=== PATIENT | male | born 1970 | race Caucasian/White ===

== ENCOUNTER 2021-05-29 20:41 | Emergency (ER) | payer OTHER ==
--- NOTE | 2021-05-29 21:21 | EDM.PDOC ---
ED HPI GENERAL MEDICAL PROBLEM - General Chief Complaint: Neck Problem Stated Complaint: NECK PAIN Time Seen by Provider: 05/29/21 21:06 - History of Present Illness INITIAL COMMENTS - FREE TEXT/NARRATIVE: History of present illness: [] Heavy equipment fell on his head 2 days ago which was an axial load. He did not have an LOC or fall. He has severe neck pain and cannot turn his neck to the left mouth. He has severe headache as well. No nausea and vomiting. No distal neurologic problems. He does think sometimes the pain takes the wind out of him. Review of systems: As per history of present illness and below otherwise all systems reviewed and negative. Past medical history: As per history of present illness and as reviewed below otherwise noncontributory. Surgical history: As per history of present illness and as reviewed below otherwise noncontributory. Social history: No reported history of drug or alcohol abuse. Family history: As per history of present illness and as reviewed below otherwise non contributory. Physical exam: Constitutional - well developed, well-nourished and in no acute distress HEENT -tender posterior C-spine mostly in the muscles especially on the right side. No step-off or deformity. Normocephalic, no evidence of trauma - external nose and mouth normal - no mass in neck and no JVD - mucosae moist EYES - full EOM, PERRL, no icterus - no evidence of inflammation, injection, or drainage Respiratory - no respiratory distress, equal bilateral expansion, lungs clear to auscultation and no abnormal lung sounds Cardiovascular - Regular Rhythm with S1 and S2 appreciated and no murmur, gallop or rub. GI - abdomen soft without distension or organomegaly - normal bowel sounds - no guard or rebound Musculoskeletal no gross deformity of long bones or joints - no tenderness, swelling or edema Neurologic -my customary brief neurologic exam is normal-alert and oriented times four - CN II-XII grossly intact - motor sensory and coordination symmetrically normal Psychiatric - appropriate mood and affect with normal thought content Hematologic - No petechiae or purpura - mucosa appropriate color and sclera not pale - normal nail bed color and refill Integument - no rash or evidence of trauma - normal turgor Diagnostics: [] Therapeutics: [] Impression: [] Plan: [] Definitive disposition and diagnosis as appropriate pending reevaluation and review of above. Head Pain Score (Numeric/FACES): 10 - Related Data Allergies Allergy/AdvReac Type Severity Reaction Status Date / Time venom-honey bee Allergy Severe Facial Verified 05/29/21 21:09 Swelling Home Meds: Home Meds diazePAM [Valium] 5 mg PO TID PRN #15 tab 05/29/21 [Rx] predniSONE [Prednisone] 60 mg PO DAILY #21 tablet 05/29/21 [Rx] Past Medical History HEENT History: Reports: None Cardiovascular History: Reports: None Respiratory History: Reports: None Gastrointestinal History: Reports: None Genitourinary History: Reports: None Musculoskeletal History: Reports: None Neurological History: Reports: Concussion Psychiatric History: Reports: None Endocrine/Metabolic History: Reports: None Hematologic History: Reports: None Immunologic History: Reports: None Oncologic (Cancer) History: Reports: None Dermatologic History: Reports: None Social & Family History - Tobacco Use Second Hand Smoke Exposure: No - Caffeine Use Caffeine Use: Reports: None - Recreational Drug Use Recreational Drug Use: No ED ROS GENERAL - Review of Systems Review Of Systems: Comprehensive ROS is negative, except as noted in HPI. ED EXAM, GENERAL - Physical Exam Exam: See Below Free Text/Narrative:: My physical exam is in the HPI Course - Vital Signs Last Recorded V/S: Last Vital Signs Temp 36.9 C 05/29/21 21:03 Pulse 83 05/29/21 22:09 Resp 18 05/29/21 22:09 BP 132/92 H 05/29/21 22:09 Pulse Ox 96 05/29/21 22:09 - Orders/Labs/Meds Orders: Active Orders 24 hr Category Date Time Status C Collar Applied [Spinal Immobilization] [RC] Care 05/29/21 21:20 Active ASDIRECTED Departure - Departure Time of Disposition: 23:21 Disposition: Home, Self-Care 01 Condition: Good Clinical Impression: Contusion of neck, Muscle spasm - Discharge Information Prescriptions: predniSONE [Prednisone] 60 mg PO DAILY #21 tablet diazePAM [Valium] 5 mg PO TID PRN #15 tab PRN Reason: Muscle Spasm - Painful Instructions: Cervical Sprain, [id number], Muscle Cramps and Spasms, [id number] Referrals: PCP,None [Primary Care Provider] - Forms: ED Department Discharge Additional Instructions: Return immediately if he have any loss of sensation or motion in your extremities. [facility] [address] [place] [address] [facility] [address] [place] [id number] The following information is given to patients seen in the emergency department who are being discharged to home. This information is to outline your options for follow-up care. We provide all patients seen in our emergency department with a follow-up referral. The need for follow-up, as well as the timing and circumstances, are variable depending upon the specifics of your emergency department visit. If you don't have a primary care physician on staff, we will provide you with a referral. We always advise you to contact your personal physician following an emergency department visit to inform them of the circumstance of the visit and for follow-up with them and/or the need for any referrals to a consulting specialist. The emergency department will also refer you to a specialist when appropriate. This referral assures that you have the opportunity for follow-up care with a specialist. All of these measure are taken in an effort to provide you with optimal care, which includes your follow-up. Under all circumstances we always encourage you to contact your private physician who remains a resource for coordinating your care. When calling for follow-up care, please make the office aware that this follow-up is from your recent emergency room visit. If for any reason you are refused follow-up, please contact the [facility] Emergency Department at and asked to speak to the emergency department charge nurse. Sepsis Event Note (ED) - Evaluation Sepsis Screening Result: No Definite Risk - Focused Exam Vital Signs: Vital Signs Temp Pulse Resp BP Pulse Ox 05/29/21 22:09 83 18 132/92 H 96 05/29/21 21:03 36.9 C 80 20 136/79 99 - My Orders Last 24 Hours: My Active Orders 05/29/21 21:20 C Collar Applied [Spinal Immobilization] [RC] ASDIRECTED - Assessment/Plan Last 24 Hours: My Active Orders 05/29/21 21:20 C Collar Applied [Spinal Immobilization] [RC] ASDIRECTED
--- NOTE | 2021-05-29 22:56 | CT ---
INDICATION: Severe headache after blunt trauma TECHNIQUE: CT head without contrast. COMPARISON: None. FINDINGS: CSF spaces: Within normal limits for age. Brain parenchyma: The tavera-white differentiation is normal. No sign of mass, hemorrhage, or midline shift. Skull base and calvarium: Mucosal thickening and trace fluid in the sphenoid sinus. The visualized orbits are grossly unremarkable. No skull fractures. IMPRESSION: Unremarkable noncontrast head CT. Please note that all CT scans at this facility use dose modulation, iterative reconstruction, and/or weight-based dosing when appropriate to reduce radiation dose to as low as reasonably achievable. Dictated by Vasile Sullivan MD @ 05/29/2021 10:55:49 PM (Electronically Signed)
--- NOTE | 2021-05-29 23:17 | CT ---
INDICATION: Severe pain after injury TECHNIQUE: CT cervical spine without contrast. COMPARISON: None FINDINGS: Vertebrae: Alignment is normal. There are no fractures or suspicious bony lesions. Discs and facet joints: Facet hypertrophy C2-3 without significant stenosis. Facet hypertrophy C3-4 without significant stenosis. Facet hypertrophy and mild disc space narrowing C4-5 with small anterior osteophytes. No significant stenosis. Posterior osteophytes facet hypertrophy C5-6 causing mild right foraminal stenosis. Posterior osteophyte at C6-7 causing mild left foraminal stenosis. Facet hypertrophy C7-T1 without significant stenosis. Extraspinal findings: Mucosal thickening and fluid within the sphenoid sinus. IMPRESSION: Multilevel degenerative changes cervical spine without evidence of cervical spine fracture. Please note that all CT scans at this facility use dose modulation, iterative reconstruction, and/or weight-based dosing when appropriate to reduce radiation dose to as low as reasonably achievable. Dictated by Vasile Sullivan MD @ 05/29/2021 11:16:18 PM (Electronically Signed)
[2021-05-29] MEDS ORDERED: predniSONE 20 MG Tab PO ONE (23:23)
[2021-05-29] MEDS ORDERED: Diazepam 2 MG Tab PO ONE (23:23)
== END 2021-05-29 23:38 | disposition home or self-care (01) ==
LOC: MW.ED 20:41
DX: S10.93XA Contusion of unspecified part of neck, initial encounter (principal); M62.838 Other muscle spasm; Z91.030 Bee allergy status; W20.8XXA Other cause of strike by thrown, projected or falling object, initial encounter
CPT/HCPCS: 70450; 72125; 99283; A9270